=== PATIENT | male | born 2000 | race Caucasian/White ===

== ENCOUNTER 2024-01-29 02:50 | Emergency (ER) | payer MEDICAID ==
[~2024-01-29] VITALS: Ht 182.9 cm; Wt 61.4 kg
[2024-01-29 02:58] VITALS: BP 127/68; PULSE 96; RESP 18; TEMP 98.6; O2SAT 100
[2024-01-29] MEDS: CEPHALEXIN MONOHYDRATE 500 MG CAPSULE PO ONE (03:56)
[2024-01-29] MEDS: DOXYCYCLINE HYCLATE 100 MG TABLET PO ONE (03:56)
[2024-01-29] MEDS: LIDOCAINE 1% 10 ML VIAL SQ ONE (03:56)
[2024-01-29] MEDS ORDERED: DOXYCYCLINE HYCLATE 100 MG TABLET PO ONE (04:15)
[2024-01-29] MEDS ORDERED: CEPHALEXIN MONOHYDRATE 500 MG CAPSULE PO ONE (04:15)
[2024-01-29] MEDS ORDERED: DOXY-354 PO (04:16)
[2024-01-29] MEDS ORDERED: CEPH-558 PO (04:16)
[2024-01-29] MEDS ORDERED: ACET-66 PO (04:16)
[2024-01-29] MEDS: ACETAMINOPHEN 500 MG TABLET PO ONE (04:21)
== END 2024-01-29 04:24 | disposition home or self-care (01) ==
LOC: EMS 02:50
DX: L02.01 Cutaneous abscess of face (principal); F12.90 Cannabis use, unspecified, uncomplicated; F17.210 Nicotine dependence, cigarettes, uncomplicated; Z91.040 Latex allergy status
CPT/HCPCS: 99284; 10060; J3490